=== PATIENT | female | born 1960 | race Caucasian/White ===

== ENCOUNTER 2021-06-26 07:48 | Emergency (ER) | payer SELFPAY ==
[~2021-06-26] VITALS: Ht 162.6 cm; Wt 63.6 kg
[~2021-06-26 07:48] MED LIST: ALBU2.5V8 IH; ATOR10TA60 PO; FLUT16SP NS; PANT40TA77 PO; VENTOLIN HFA18 GM INH
--- NOTE | 2021-06-26 08:31 | RAD ---
XR CHEST 1V History: Shortness of air Comparison: None. Technique: AP radiograph of the chest. Findings: The lungs are adequately and symmetrically inflated. Left upper lobe calcified granuloma. No airspace consolidation, pleural effusion or pneumothorax. The cardiomediastinal silhouette and pulmonary vasc ulature are within normal limits. Degenerative changes of the acromioclavicular joints and levoconvex curvature of the thoracic spine. No acute osseous abnormality. Soft tissues are unremarkable. Impression: 1. No acute cardiopulmonary process. Electronically signed by: Zen Cavanaugh MD (06/26/2021 8:29 AM) [id number]
[2021-06-26 09:23] LABS: BASO # 0.1 x10^3/uL (0.0-0.2); BASO % 1 % (0-3); EOS # 0.1 x10^3/uL (0.0-0.7); EOS % 1 % (0-3); HEMATOCRIT 38.5 % (36.0-47.0); LYMPH # 1.3 x10^3/uL (1.0-4.8); LYMPH % 16 % (24-48); MEAN CORPUSCULAR HEMOGLOBIN 29 pg (25-35); MEAN CORPUSCULAR HGB CONC 34 g/dL (31-37); MEAN CORPUSCULAR VOLUME 87 fL (79-100); MONO # 0.5 x10^3/uL (0.0-1.1); MONO % 6 % (0-9); NEUT # 6.2 x10^3/uL (1.8-7.7); NEUT % 77 % (31-73); PLATELET COUNT 237 x10^3/uL (140-400); RED BLOOD COUNT 4.44 x10^6/uL (3.50-5.40); RED CELL DISTRIBUTION WIDTH 13.9 % (11.5-14.5); WHITE BLOOD COUNT 8.1 x10^3/uL (4.0-11.0)
[2021-06-26 09:35] LABS: CALCIUM 9.8 mg/dL (8.5-10.1); CREATININE 0.9 mg/dL (0.6-1.0); GFR 64.1; POTASSIUM 3.9 mmol/L (3.5-5.1)
[2021-06-26 09:40] LABS: ALBUMIN 4.4 g/dL (3.4-5.0); ALBUMIN/GLOBULIN RATIO 1.2 (1.0-1.7); MAGNESIUM 2.5 mg/dL (1.8-2.4); TOTAL BILIRUBIN 0.4 mg/dL (0.2-1.0); TOTAL PROTEIN 8.1 g/dL (6.4-8.2)
[2021-06-26] MEDS ORDERED: IOHEXOL 350 MG/ML 100 ML VIAL. IV ONE (10:00)
[2021-06-26] MEDS ORDERED: CONTRAST GIVEN. MC PRN (10:00)
--- NOTE | 2021-06-26 10:33 | RAD ---
EXAMINATION: CTA CHEST CLINICAL HISTORY: Shortness of breath, chest pain Technique: Spiral CT acquisition of the chest from the thoracic inlet to the upper abdomen following IV contrast with coronal and sagittal reformatted images also provided for review. 3D maximum intensi ty projection images also performed. CT Dose Reduction Employed: One or more of the following individualized dose reduction techniques wer e utilized for this examination: 1. Automated exposure control 2. Adjustment of the mA and/or kV ac cording to patient size 3. Use of iterative reconstruction technique. Comparison: Chest radiograph same day FINDINGS: Pulmonary Vasculature: No evidence of main, lobar, or segmental pulmonary thrombus. Lung Parenchyma, Pleura, and Airways: No focal consolidation. Mild dependent and bibasilar subsegment al atelectasis. Nonspecific mild diffuse smooth interstitial thickening. Small old calcified granulom as in the left upper lobe and lingula. No pleural effusion. Central airways patent. Lower Neck, Lymph Nodes, and Mediastinum: Visualized thyroid gland within normal limits. No mediastin al, hilar, or axillary lymphadenopathy. Heart, Pericardium, and Thoracic Vessels: Cardiac chambers normal in size. No pericardial effusion. M inimal aortic atherosclerotic calcification. No coronary artery atherosclerotic calcifications are no cr, although the study is not optimized for coronary assessment. Bones and Soft Tissues: Multilevel degenerative changes in the thoracic spine. Upper Abdomen: Partially visualized upper abdomen unremarkable. IMPRESSION: No evidence of main, lobar, or segmental pulmonary embolism. No definitive evidence of acute cardiopulmonary abnormality. Nonspecific mild diffuse interstitial thickening, possibly chronic. Electronically signed by: Lc Navarrete DO (06/26/2021 10:31 AM) [id number]
--- NOTE | 2021-06-26 10:59 | PHYS DOC ---
Past Medical History Past Medical History: Anemia, Anxiety, Asthma, Cancer, COPD, Depression, DVT, Hypertension, Hypothyroid, PR, UTI Additional Past Medical Histor: OVARIN AND SKIN CA WITH CHEMO AND RADIATION Past Surgical History: Hysterectomy, Oophorectomy, Tonsillectomy Smoking Status: Former Smoker Alcohol Use: None Drug Use: None General Adult EDM: Chief Complaint: SHORTNESS OF BREATH HPI: HPI: Patient is a 60 year old female who present to ER for 3-week history of nonproductive cough, body aches, feeling weak and dizzy. Patient IS having trouble breathing, feeling dizzy. Patient with vaccinated for COVID-19 already, last dose was in March. Patient is a business office technician. Patient also complained of headache, denies any neck pain, no fever. Review of Systems: Review of Systems: Constitutional: Denies fever or chills. [] Eyes: Denies change in visual acuity. [] HENT: Denies nasal congestion or sore throat. [] Respiratory: Positive for cough and trouble breathing Cardiovascular: Denies chest pain or edema. [] GI: Denies abdominal pain, nausea, vomiting, bloody stools or diarrhea. [] : Denies dysuria. [] Musculoskeletal: Denies back pain, positive for joint pain Integument: Denies rash. [] Neurologic: Positive headaches, dizziness, no focal weakness or sensory changes. Endocrine: Denies polyuria or polydipsia. [] Lymphatic: Denies swollen glands. [] Psychiatric: Denies depression or anxiety. [] Heart Score: C/O Chest Pain: N/A Risk Factors: Risk Factors: DM, Current or recent (<one month) smoker, HTN, HLP, family history of CAD, obesity. Risk Scores: Score 0 - 3: 2.5% MACE over next 6 weeks - Discharge Home Score 4 - 6: 20.3% MACE over next 6 weeks - Admit for Clinical Observation Score 7 - 10: 72.7% MACE over next 6 weeks - Early Invasive Strategies Current Medications: Current Medications Medications (Trade) Dose Ordered Sig/Awilda Start Time Stop Time Status Last Admin Dose Admin Info (CONTRAST GIVEN -- Rx MONITORING) 1 each PRN DAILY PRN 06/26/21 10:00 06/28/21 09:59 Iohexol (Omnipaque 350 Mg/ml) 90 ml 1X ONCE 06/26/21 10:00 06/26/21 10:01 DC 06/26/21 10:15 90 ML Allergies: Allergies: Allergies Coded Allergies Type Severity Reaction Last Updated Verified acetaminophen Allergy Severe Anaphylaxis 03/26/21 Yes aspirin Allergy Intermediate Hives 03/26/21 Yes codeine Allergy Intermediate 03/26/21 No Physical Exam: PE: Constitutional: Well developed, well nourished, no acute distress, non-toxic appearance. [] HENT: Normocephalic, atraumatic, bilateral external ears normal, oropharynx moist, no oral exudates, nose normal. [] Eyes: PERRLA, EOMI, conjunctiva normal, no discharge. [] Neck: Normal range of motion, no tenderness, supple, no stridor. [] Cardiovascular:Heart rate regular rhythm, no murmur [] Lungs & Thorax: Bilateral breath sounds clear to auscultation [] Abdomen: Bowel sounds normal, soft, no tenderness, no masses, no pulsatile masses. [] Skin: Warm, dry, no erythema, no rash. [] Back: No tenderness, no CVA tenderness. [] Extremities: No tenderness, no cyanosis, no clubbing, ROM intact, no edema. [] Neurologic: Alert and oriented X 3, normal motor function, normal sensory function, no focal deficits noted. [] Psychologic: Affect normal, judgement normal, mood normal. [] Current Patient Data: Labs: Laboratory Tests Test 06/26/21 09:12 06/26/21 09:20 White Blood Count 8.1 x10^3/uL (4.0-11.0) Red Blood Count 4.44 x10^6/uL (3.50-5.40) Hemoglobin 13.0 g/dL (12.0-15.5) Hematocrit 38.5 % (36.0-47.0) Mean Corpuscular Volume 87 fL (79-100) Mean Corpuscular Hemoglobin 29 pg (25-35) Mean Corpuscular Hemoglobin Concent 34 g/dL (31-37) Red Cell Distribution Width 13.9 % (11.5-14.5) Platelet Count 237 x10^3/uL (140-400) Neutrophils (%) (Auto) 77 % (31-73) H Lymphocytes (%) (Auto) 16 % (24-48) L Monocytes (%) (Auto) 6 % (0-9) Eosinophils (%) (Auto) 1 % (0-3) Basophils (%) (Auto) 1 % (0-3) Neutrophils # (Auto) 6.2 x10^3/uL (1.8-7.7) Lymphocytes # (Auto) 1.3 x10^3/uL (1.0-4.8) Monocytes # (Auto) 0.5 x10^3/uL (0.0-1.1) Eosinophils # (Auto) 0.1 x10^3/uL (0.0-0.7) Basophils # (Auto) 0.1 x10^3/uL (0.0-0.2) Sodium Level 144 mmol/L (136-145) Potassium Level 3.9 mmol/L (3.5-5.1) Chloride Level 103 mmol/L (98-107) Carbon Dioxide Level 30 mmol/L (21-32) Anion Gap 11 (6-14) Blood Urea Nitrogen 18 mg/dL (7-20) Creatinine 0.9 mg/dL (0.6-1.0) Estimated GFR (Cockcroft-Gault) 64.1 BUN/Creatinine Ratio 20 (6-20) Glucose Level 138 mg/dL (70-99) H Calcium Level 9.8 mg/dL (8.5-10.1) Magnesium Level 2.5 mg/dL (1.8-2.4) H Total Bilirubin 0.4 mg/dL (0.2-1.0) Aspartate Amino Transferase (AST) 52 U/L (15-37) H Alanine Aminotransferase (ALT) 66 U/L (14-59) H Alkaline Phosphatase 97 U/L (46-116) Troponin I Quantitative < 0.017 ng/mL (0.000-0.055) XG-Rhu-I-Type Natriuretic Peptide 69 pg/mL (0-124) Total Protein 8.1 g/dL (6.4-8.2) Albumin 4.4 g/dL (3.4-5.0) Albumin/Globulin Ratio 1.2 (1.0-1.7) SARS-CoV-2 Antigen (Rapid) Negative (NEGATIVE) Laboratory Tests 06/26/21 09:12 Laboratory Tests 06/26/21 09:12 Vital Signs: Vital Signs Date Time Temp Pulse Resp B/P (MAP) Pulse Ox O2 Delivery O2 Flow Rate FiO2 06/26/21 08:06 98.0 91 22 188/116 (110) 99 Room Air 98.0 EKG: EKG: EKG was done at 916, heart rate of 79 bpm, sinus rhythm, no ST segment elevation, normal axis. Radiology/Procedures: Radiology/Procedures: [][facility] [address] [place] [address] IMAGING REPORT Signed PATIENT: KIM BISHOP ACCOUNT: [id number] : 1960 LOCATION: ER AGE: 60 SEX: F EXAM STATUS: REG ER ORD. PHYSICIAN: MARKUS VELIZ DO REASON: SHORTNESS OF AIR,CHEST PAIN PROCEDURE: CT ANGIOGRAPHY CHEST EXAMINATION: CTA CHEST CLINICAL HISTORY: Shortness of breath, chest pain Technique: Spiral CT acquisition of the chest from the thoracic inlet to the upper abdomen following IV contrast with coronal and sagittal reformatted images also provided for review. 3D maximum intensity projection images also performed. CT Dose Reduction Employed: One or more of the following individualized dose reduction techniques were utilized for this examination: 1. Automated exposure control 2. Adjustment of the mA and/or kV according to patient size 3. Use of iterative reconstruction technique. Comparison: Chest radiograph same day FINDINGS: Pulmonary Vasculature: No evidence of main, lobar, or segmental pulmonary thrombus. Lung Parenchyma, Pleura, and Airways: No focal consolidation. Mild dependent and bibasilar subsegmental atelectasis. Nonspecific mild diffuse smooth interstitial thickening. Small old calcified granulomas in the left upper lobe and lingula. No pleural effusion. Central airways patent. Lower Neck, Lymph Nodes, and Mediastinum: Visualized thyroid gland within normal limits. No mediastinal, hilar, or axillary lymphadenopathy. Heart, Pericardium, and Thoracic Vessels: Cardiac chambers normal in size. No pericardial effusion. Minimal aortic atherosclerotic calcification. No coronary artery atherosclerotic calcifications are noted, although the study is not optimized for coronary assessment. Bones and Soft Tissues: Multilevel degenerative changes in the thoracic spine. Upper Abdomen: Partially visualized upper abdomen unremarkable. IMPRESSION: No evidence of main, lobar, or segmental pulmonary embolism. No definitive evidence of acute cardiopulmonary abnormality. Nonspecific mild diffuse interstitial thickening, possibly chronic. Electronically signed by: Lc Fitzpatrick DO (06/26/2021 10:31 AM) [id number] DICTATED and SIGNED BY: LC FITZPATRICK DO DATE: 06/26/21 [id number] Course & Med Decision Making: Course & Med Decision Making Pertinent Labs and Imaging studies reviewed. (See chart for details) Patient is a 60-year-old female who present to ER due to cough and trouble breathing for 3 weeks. CTA of the chest did not show any acute problem, patient was found to have elevated blood pressure. Patient says she was told that she had high blood pressure and she was on some form of high blood pressure medication in the past but not anymore. Patient will be discharged home with some steroid for the viral syndrome, and Norvasc for her high blood pressure. Patient will need to follow-up with her family physician for reevaluation. Patient was tested negative for COVID-19. Dragon Disclaimer: Dragon Disclaimer: This electronic medical record was generated, in whole or in part, using a voice recognition dictation system. Departure Departure Impression: Primary Impression: Viral syndrome Additional Impression: Hypertension Disposition: HOME / SELF CARE / HOMELESS Condition: STABLE Referrals: NO PCP (PCP) Please follow up with [facility] this week. [address], [address] [place] [address] Phone number: [phone] Patient Instructions: Hypertension, Viral Syndrome Additional Instructions: Thank you for visiting our Emergency Department. We appreciate you trusting us with your care. If any additional problems come up don't hesitate to return to visit us. Please follow up with your primary care provider so they can plan additional care if needed and know about the problem that you had. If symptoms worsen come back to the Emergency Department. Any concerning symptoms that start such as chest pain, shortness of air, weakness or numbness on one side of the body, running high fevers or any other concerning symptoms return to the ER. Scripts Prednisone (PREDNISONE) 20 Mg Tablet 1 TAB PO DAILY for 10 Days, #10 TAB Prov: MARKUS VELIZ DO 06/26/21 Amlodipine Besylate (NORVASC) 5 Mg Tablet 1 TAB PO DAILY, #30 TAB 2 Refills Prov: MARKUS VELIZ DO 06/26/21 MARKUS VELIZ DO Jun 26, 2021 10:59
[2021-06-26] MEDS ORDERED: AMLO5TAB4 PO (11:27)
[2021-06-26] MEDS ORDERED: PRED20TA PO (11:27)
[2021-06-26 11:44] VITALS: BP 190/94
--- NOTE | 2021-06-26 20:08 | NUR ---
IP: Attempted to contact pt concerning covid results. no answer, left a voicemail to return the call.
== END 2021-06-26 11:57 | disposition home or self-care (01) ==
LOC: ER 07:48
DX: B34.9 Viral infection, unspecified (principal); I10 Essential (primary) hypertension; F41.9 Anxiety disorder, unspecified; J44.9 Chronic obstructive pulmonary disease, unspecified; E03.9 Hypothyroidism, unspecified; I25.2 Old myocardial infarction; Z20.822 Contact with and (suspected) exposure to COVID-19; Z86.2 Personal history of diseases of the blood and blood-forming organs and certain disorders involving the immune mechanism; Z87.440 Personal history of urinary (tract) infections; Z86.718 Personal history of other venous thrombosis and embolism; Z88.5 Allergy status to narcotic agent; Z88.6 Allergy status to analgesic agent; Z88.8 Allergy status to other drugs, medicaments and biological substances
CPT/HCPCS: 36415; 71045; 71275; 80053; 83735; 83880; 84484; 85025; 87426; 99285; Q9967; U0003; U0005